=== PATIENT | female | born 1945 | race Caucasian/White ===

== ENCOUNTER → 2016-07-26 | Outpatient (CLI) | payer MEDICARE, OTHER ==
--- NOTE | 2016-07-26 16:38 | RADRPT ---
PROCEDURE: XR Left Hip and pelvis. CLINICAL INDICATION: Left hip pain. Pelvic pain. Postop. TECHNIQUE: Three views. Frontal pelvis. Frontal and lateral left hip. COMPARISON: No prior studies are available for comparison. FINDINGS: There is no fracture or dislocation. The soft tissues are normal. There is a left hip total arthroplasty which appears satisfactory. The right hip is grossly normal. There is no lytic or blastic lesion. There has been prior lower lumbar spine surgery. IMPRESSION: 1. Satisfactory postoperative appearance of the left hip. 2. Prior lower lumbar spine surgery. 3. Otherwise unremarkable study. RPTAT: QQ .Newton Gu MD, MD Date Time Electronically viewed and signed by .Newton Gu MD, MD on 07/26/2016 16:38 .R/
== END | disposition home or self-care (01) ==
LOC: HKI 14:08
PROVIDERS: ATTEND Orthopaedic Surgery
DX: M25.552 Pain in left hip (principal); M54.16 Radiculopathy, lumbar region; M76.12 Psoas tendinitis, left hip; Z96.642 Presence of left artificial hip joint; M51.36 Other intervertebral disc degeneration, lumbar region
CPT/HCPCS: 73502; G0463